=== PATIENT | male | born 1945 | race Caucasian/White ===

== ENCOUNTER 2019-11-15 05:44 | Emergency (ER) | payer MEDICARE, BC | END 2019-11-15 06:21 | LOC: ERS 05:44 | DX: Z04.3 Encounter for examination and observation following other accident (principal); F03.90 Unspecified dementia, unspecified severity, without behavioral disturbance, psychotic disturbance, mood disturbance, and anxiety; M19.90 Unspecified osteoarthritis, unspecified site; G40.909 Epilepsy, unspecified, not intractable, without status epilepticus; K21.9 Gastro-esophageal reflux disease without esophagitis; F41.9 Anxiety disorder, unspecified; Z79.899 Other long term (current) drug therapy; W18.30XA Fall on same level, unspecified, initial encounter | CPT/HCPCS: 99283 ==

== ENCOUNTER 2020-03-29 10:56 | Emergency (ER) | payer MEDICARE, BC ==
[2020-03-29 12:56] LABS: #Eosinphils 0.1 thou/uL (0.0-0.7); #Lymphocytes 0.9 thou/uL (1.20-3.40); #Monocytes 0.7 thou/uL (0.11-0.59); #Neutrophils 5.6 thou/uL (1.40-6.50); %Basophils 0.4 % (0.0-1.0); %Eosinophils 1.2 % (0.0-10.0); %Lymphocytes 12.8 % (21.0-51.0); %Monocytes 9.3 % (0.0-10.0); %Neutrophils 76.3 % (42.0-75.0); Hemoglobin 15.5 g/dL (14.0-18.0); Mean Corpuscular HGB CONC 32.9 g/dL (32.0-36.0); Mean Corpuscular Hemoglobin 32.6 pg (27.0-31.0); Mean Corpuscular Volume 99.1 fL (78.0-98.0); Mean Platelet Volume 9.2 fL (7.4-10.4); Platelet Count 109 thou/uL (130-400); RBC Distribution Width 11.9 % (11.5-14.5); Red Blood Cell (RBC) Count 4.75 mill/uL (4.70-6.10); White Blood Cell (WBC) Count 7.4 thou/uL (4.8-10.8)
[2020-03-29 13:16] LABS: Platelet Morphology Comment Appears Decreased; RBC Morphology Normal
[2020-03-29 13:25] LABS: ALT (SGPT) Less than 7 U/L (8-55); AST (SGOT) 15 U/L (5-34); Albumin 4.1 g/dL (3.4-4.8); Alkaline Phosphatase 54 U/L (40-110); Anion Gap 13 mmol/L (10-20); BUN (Urea Nitrogen) 15 mg/dL (8.4-25.7); Bilirubin, Total 0.7 mg/dL (0.2-1.2); Calc. Creatinine Clearance 0 mL/min (70-130); Calcium 8.9 mg/dL (7.8-10.44); Carbon Dioxide 26 mmol/L (23-31); Chloride 104 mmol/L (98-107); Estimated GFR-MDRD 67; Globulin 2.5 g/dL (2.4-3.5); Glucose 111 mg/dL (83-110); Potassium 4.1 mmol/L (3.5-5.1); Protein, Total 6.6 g/dL (5.8-8.1); Sodium 139 mmol/L (136-145)
[2020-03-29 14:35] LABS: Bilirubin Negative (Negative); Blood, Urine Negative (Negative); Glucose, Urine (Dipstick) Negative (Negative); Leukocyte Negative (Negative); Nitrite Negative (Negative); Protein, Urine (Dipstick) Negative (Neg-Trace); Urobilinogen 0.2 mg/dL (Less than 2)
[2020-03-29 14:37] LABS: Clarity Clear (Clear)
--- NOTE | 2020-03-29 15:40 | RAD ---
PORTABLE CHEST ONE VIEW: 03/29/20 at 11:48 a.m. HISTORY: Syncope. FINDINGS: The heart size is normal. No focal areas of consolidation, pneumothoraces, or pleural effusions are s een. There is evidence of old granulomatous disease. IMPRESSION: No acute process. POS: MAYA
== END 2020-03-29 16:09 | disposition home or self-care (01) ==
LOC: ERS 10:56
DX: R41.82 Altered mental status, unspecified (principal); F03.90 Unspecified dementia, unspecified severity, without behavioral disturbance, psychotic disturbance, mood disturbance, and anxiety; G40.909 Epilepsy, unspecified, not intractable, without status epilepticus; F41.9 Anxiety disorder, unspecified; M19.90 Unspecified osteoarthritis, unspecified site; Z79.899 Other long term (current) drug therapy
CPT/HCPCS: 36415; 51701; 71045; 80053; 80177; 81003; 84484; 85025; 93005

== ENCOUNTER 2020-04-14 12:43 | Inpatient (IN) | payer MEDICARE, BC, OTHER ==
[2020-04-14] MEDS ORDERED: Vancomycin 1 GM/200 ML BAG ONE (13:04)
[2020-04-14] MEDS ORDERED: Cefepime 2 GM VIAL ONE (13:09)
[2020-04-14] MEDS ORDERED: Iopamidol-370 76% 500 ML 1 ML ONE (13:09)
[2020-04-14 13:20] LABS: #Basophils 0.1 thou/uL (0.0-0.2); #Lymphocytes 0.2 thou/uL (1.20-3.40); #Monocytes 0.4 thou/uL (0.11-0.59); #Neutrophils 6.6 thou/uL (1.40-6.50); %Basophils 0.8 % (0.0-1.0); %Eosinophils 0.6 % (0.0-10.0); %Lymphocytes 3.2 % (21.0-51.0); %Monocytes 5.6 % (0.0-10.0); %Neutrophils 89.7 % (42.0-75.0); Mean Corpuscular HGB CONC 32.9 g/dL (32.0-36.0); Mean Corpuscular Hemoglobin 32.8 pg (27.0-31.0); Mean Corpuscular Volume 99.6 fL (78.0-98.0); Mean Platelet Volume 8.5 fL (7.4-10.4); Platelet Count 105 thou/uL (130-400); RBC Distribution Width 11.9 % (11.5-14.5); Red Blood Cell (RBC) Count 3.98 mill/uL (4.70-6.10); White Blood Cell (WBC) Count 7.3 thou/uL (4.8-10.8)
[2020-04-14 13:41] LABS: ALT (SGPT) 26 U/L (8-55); AST (SGOT) 38 U/L (5-34); Albumin 3.2 g/dL (3.4-4.8); Alkaline Phosphatase 85 U/L (40-110); Anion Gap 17 mmol/L (10-20); BUN (Urea Nitrogen) 19 mg/dL (8.4-25.7); Bilirubin, Total 1.7 mg/dL (0.2-1.2); CK (CPK) 510 U/L (30-200); Calc. Creatinine Clearance 0 mL/min (70-130); Calcium 7.9 mg/dL (7.8-10.44); Carbon Dioxide 24 mmol/L (23-31); Chloride 102 mmol/L (98-107); Estimated GFR-MDRD 68; Globulin 2.2 g/dL (2.4-3.5); Glucose 146 mg/dL (83-110); Lipase 36 U/L (8-78); Potassium 3.5 mmol/L (3.5-5.1); Protein, Total 5.4 g/dL (5.8-8.1); Sodium 139 mmol/L (136-145)
--- NOTE | 2020-04-14 13:56 | RAD ---
PORTABLE CHEST ONE VIEW: 04/14/20 at 1:05 p.m. HISTORY: Low oxygen saturation and fever. COMPARISON: Earlier exam of 12:46 a.m. from same date. FINDINGS/IMPRESSION: No significant interval changes are seen. POS: OFF
[2020-04-14] MEDS ORDERED: Azithromycin 500 MG VIAL ONE (15:04)
--- NOTE | 2020-04-14 16:26 | CT ---
CTA Angio Chest W WO Con 04/14/2020 1:49 PM Indication: Fever, shortness of breath, tachycardia and elevated d-dimer Technique: Multiple CTA images were obtained of the thorax with IV contrast. 3-D rendering: [place] nstructed images were created and reviewed. Comparison: Chest radiograph dated March 29, 2020 Findings: Pulmonary arteries: No central or segmental pulmonary embolus is evident. Heart and Aorta: There are coronary artery and thoracic aortic calcifications. There is mild cardiom egaly. Mediastinum:Normal appearing. No enlarged lymph nodes. Lungs:Airspace consolidation is present within the posterior lateral right lower lobe. There is subse gmental volume loss involving both lower lobes. Pleural space: Small bilateral pleural effusions. Upper Abdomen: There is a small hiatal hernia. There is a hypodense oval lesion involving the expect ed region of the superior pole left kidney that is incompletely characterized. This measures 4.6 cm and may reflect a prominent exophytic cyst. Osseous Structures: No acute osseous abnormality. Soft tissues:No abnormality. Other findings:None. Impression: 1. No central or segmental pulmonary embolus. 2. Right lower lobe pneumonia 3. Mild cardiomegaly and small bilateral pleural effusions suspicious for a component of mild CHF. R ecommend correlation with clinical examination. 4. Partially visualized hypodense lesion involving the region of the superior pole left kidney suspi cious for possible cyst. Follow-up renal ultrasound is recommended.
[2020-04-14 18:44] LABS: Bilirubin Negative (Negative); Blood, Urine Small (Negative); Glucose, Urine (Dipstick) Negative (Negative); Leukocyte Negative (Negative); Nitrite Negative (Negative); Protein, Urine (Dipstick) 30 mg/dL (Neg-Trace)
[2020-04-14 18:45] LABS: Clarity Hazy (Clear)
[2020-04-14 18:50] LABS: Other Microscopic Description Less than 2 mL rec'd
[2020-04-14 18:51] LABS: Bacteria/HPF None Seen HPF (None Seen); Squamous Epithelial None Seen HPF (0-3); WBC/HPF 0-3 HPF (0-3)
[2020-04-14] MEDS ORDERED: Calcium Carbonate 500 MG ChewTAB PO PRN (20:22)
[2020-04-14] MEDS ORDERED: Ondansetron PF 4 MG/2 ML Vial IVP PRN ×2 (20:22→20:29)
[2020-04-14] MEDS ORDERED: Bisacodyl 5 MG TAB PO PRN (20:22)
[2020-04-14] MEDS ORDERED: HYDROcodone/Acetaminophen 5/325 mg Tablet PO PRN (20:22)
[2020-04-14] MEDS ORDERED: diphenhydrAMINE 25 MG CAP PO PRN (20:24)
[2020-04-14] MEDS ORDERED: Docusate 100 MG CAP PO PRN (20:24)
[2020-04-14] MEDS ORDERED: Melatonin 3 MG TAB PO PRN (20:24)
[2020-04-14] MEDS ORDERED: Labetalol HCl 100 MG/20 ML VIAL SLOW IVP PRN (20:24)
[2020-04-14] MEDS ORDERED: Benzonatate 100 MG CAP PO PRN (20:24)
[2020-04-14] MEDS ORDERED: Ondansetron ODT 4 MG TAB SL PRN (20:29)
--- NOTE | 2020-04-14 20:38 | PDOC.HHP ---
Hospitalist HPI - History of Present Illness Fever, concern for COVID 19 History of Present Illness: 75-year-old gentleman with past medical history of Parkinson's disease, dementia , traumatic brain injury, seizure disorder, and osteoarthritis presents with fever and symptoms of Covid 19. Patient is nonverbal a baseline and has lived in nursing facility for the past four years. History is primarily obtained from the patient's and son in person. Patient has had worsening trouble breathing with shortness of breath and hypoxia at nursing facility, he was found have a temperature and was sent over to the emergency department for further evaluation. Upon arrival he had a temperature reportedly of 103.9, CT scan of the chest was performed for and elevated D dimer which was negative for pulmonary embolism however demonstrated a right lower lobe pneumonia. Patient's labs are suggestive of Covid 19, he has a normal white blood cell count, elevated D dimer, low platelets, and a mild increase in his liver function tests. I find the patient in the emergency department he is laying flat in bed in no apparent distress his eyes are open any tracks around the room. He opens his mouth and attempts to make a few words though they are incomprehensible. The patient was diagnosed with sepsis in the emergency department and recommended admission for further management. I had a long discussion with patients and son in the conference room in the emergency department, greater than one hour of [id number] time was spent with patient's family. The patient has lived for the fast past [facility] years in prison facility, this current nursing facility has an outbreak of Covid 19 with "18 out of 22 members who have tested positive" for the infection, per the patient's . The patient had a test on Thursday of last week with results coming back on Thursday being "negative". I discussed with them the possibility of false- negative testing and the limitations of the current Covid 19 test. I had discussed with them at length their goals of care and they state that he is a do not attempt resuscitation and do not intubate at baseline. They are not interested in aggressive measures, they specifically do not want to start antibiotics or other medications to treat COVID. They want only comfort care measures, they do not want anymore painful or uncomfortable testing including no more lab draws and they are interested in Palliative care/ hospice. I will consult the Palliative care team and see if we can help set up hospice prior to discharge. Hospitalist ROS - Review of Systems ROS unobtainable: due to mental status Hospitalist History - Past Medical History Source: patient, family, old records - Past Surgical History Past Surgical History: reports: Other (craniotomy) - Family History Family History: reports: hypertension - Social History Smoking Status: Never smoker Alcohol: reports: None Drugs: reports: none Living Situation: Prison Domestic Violence: Negative - Exam General Appearance: NAD Eye: PERRL, anicteric sclera ENT: normocephalic atraumatic, moist mucosa Neck: supple, symmetric, no lymphadenopathy Heart: no murmur, no gallops, no rubs, normal peripheral pulses Respiratory: CTAB, no wheezes, no rales, no ronchi, normal chest expansion Respiratory - other findings: Mild decrease in breath sounds right lower lung elizondo Gastrointestinal: soft, non-tender, no guarding, no rigidity Extremities: no edema Skin: no lesions, no rashes Neurological: cranial nerve grossly intact, no focal deficits ( pill rolling tremmor.) Neurological - other findings: Classic exam of Parkinsons. Cogwheel rigidity, masked faces, Musculoskeletal: generalized weakness Psychiatric: not oriented, flat affect Hospitalist Results - Labs Result Diagrams: 04/14/20 13:00 04/14/20 13:00 Lab results: WBC 7.3 thou/uL (4.8-10.8) 04/14/20 13:00 Hgb 13.0 g/dL (14.0-18.0) L 04/14/20 13:00 Hct 39.6 % (42.0-52.0) L 04/14/20 13:00 MCV 99.6 fL (78.0-98.0) H 04/14/20 13:00 Plt Count 105 thou/uL (130-400) L 04/14/20 13:00 Neutrophils % 89.7 % (42.0-75.0) H 04/14/20 13:00 Sodium 139 mmol/L (136-145) 04/14/20 13:00 Potassium 3.5 mmol/L (3.5-5.1) 04/14/20 13:00 Chloride 102 mmol/L (98-107) 04/14/20 13:00 Carbon Dioxide 24 mmol/L (23-31) 04/14/20 13:00 BUN 19 mg/dL (8.4-25.7) 04/14/20 13:00 Creatinine 1.06 mg/dL (0.7-1.3) 04/14/20 13:00 Glucose 146 mg/dL (83-110) H 04/14/20 13:00 Lactic Acid 1.0 mmol/L (0.5-2.2) 04/14/20 18:07 Calcium 7.9 mg/dL (7.8-10.44) 04/14/20 13:00 Total Bilirubin 1.7 mg/dL (0.2-1.2) H 04/14/20 13:00 AST 38 U/L (5-34) H 04/14/20 13:00 ALT 26 U/L (8-55) 04/14/20 13:00 Alkaline Phosphatase 85 U/L (40-110) 04/14/20 13:00 Creatine Kinase 510 U/L (30-200) H 04/14/20 13:00 Troponin I 0.012 ng/mL (< 0.028) 04/14/20 13:00 B-Natriuretic Peptide 33.5 pg/mL (0-100) 04/14/20 13:00 Serum Total Protein 5.4 g/dL (5.8-8.1) L 04/14/20 13:00 Albumin 3.2 g/dL (3.4-4.8) L 04/14/20 13:00 Lipase 36 U/L (8-78) 04/14/20 13:00 Urine Ketones Negative mg/dL (Negative) 04/14/20 18:00 Urine Blood Small (Negative) A 04/14/20 18:00 Urine Nitrite Negative (Negative) 04/14/20 18:00 Ur Leukocyte Esterase Negative (Negative) 04/14/20 18:00 Urine RBC 4-6 HPF (0-3) A 04/14/20 18:00 Urine WBC 0-3 HPF (0-3) 04/14/20 18:00 Ur Squamous Epith Cells None Seen HPF (0-3) 04/14/20 18:00 Urine Bacteria None Seen HPF (None Seen) 04/14/20 18:00 - Radiology Interpretation CT scan - chest Status: image reviewed by tn Hospitalist H&P A/P - Problem (1) COVID-19 Code(s): U07.1 - COVID-19 Status: Acute (2) Pneumonia due to COVID-19 virus Code(s): U07.1 - COVID-19; J12.89 - OTHER VIRAL PNEUMONIA Status: Acute (3) Shortness of breath Code(s): R06.02 - SHORTNESS OF BREATH Status: Acute (4) Fever Code(s): R50.9 - FEVER, UNSPECIFIED Status: Acute (5) Seizure Code(s): R56.9 - UNSPECIFIED CONVULSIONS Status: Acute (6) Parkinson disease Code(s): G20 - PARKINSON'S DISEASE Status: Acute (7) Traumatic brain injury Code(s): S06.9X9A - UNSP INTRACRANIAL INJURY W LOC OF UNSP DURATION, INIT Status: Acute (8) Thrombocytopenia Code(s): D69.6 - THROMBOCYTOPENIA, UNSPECIFIED Status: Acute (9) Lactic acid acidosis Code(s): E87.2 - ACIDOSIS Status: Acute (10) Elevated liver enzymes Code(s): R74.8 - ABNORMAL LEVELS OF OTHER SERUM ENZYMES Status: Acute - Plan Plan: Plan: Admit to medical unit Palliative care consultation, recommendations appreciated Goals of family is to have palliative care/hospice set up, at the [facility] where he is a chronic resident Family DO NOT want treatment of COVID19 and declined antibiotics or other such therapy Family DO want comfort care, pain control, cough aid, pain medications, anxiety medications as needed Patient is a DNAR prior to admission, we will honor patients and families wishes No further lab draws or invasive measure Conintue home: Sinemet, Keppra, Risperdal, Protonix Added PRN medications for pain, sleep, cough, anxiety, tylenol for fever Symptomatic care Greater than 85 minutes of care provided, with 60 minutes of face to face time spent with patient and family
[2020-04-14 20:39] VITALS: BMI 21.9
[2020-04-14] MEDS ORDERED: Morphine 2 MG/ML SYRINGE SLOW IVP PRN (20:54)
[2020-04-14] MEDS ORDERED: levETIRAcetam 500 MG TAB PO SCH (21:00)
[2020-04-14] MEDS: RisperDAL M-TAB 1 MG TAB SL SCH ×2 (22:49→23:24)
[2020-04-14] MEDS: Acetaminophen 650 MG Suppository PR PRN (23:24)
[2020-04-15] MEDS ORDERED: Vancomycin 1 GM in Premix Bag 1 BAG IVPB SCH (02:00)
[2020-04-15] MEDS: Acetaminophen 650 MG Suppository PR PRN (03:36)
[2020-04-15] MEDS ORDERED: Ketorolac Tromethamine 30 MG/ML VIAL IVP SCH (06:00)
[2020-04-15] MEDS: Carbidopa/Levodopa 25-100 mg Tablet PO SCH (09:08)
[2020-04-15] MEDS: RisperDAL M-TAB 1 MG TAB SL SCH ×3 (09:37→20:18)
[2020-04-15] MEDS ORDERED: Cefepime 2 GM in Sodium Chloride 0.9% 100 ML IVPB SCH (13:00)
--- NOTE | 2020-04-15 13:14 | PDOC.HOSPP ---
- Subjective Subjective: Seen and examined. Fever in the night up to 102.2, down trended with Tylenol this AM. Clinically seems more lethargic and worse. Very rigid and stiff muscles from Parkinson's disease. I called the patient's , Amalia at , time was given for questions, all answered in detail. I updated her to the critical nature of his condition including the fact that he now has bacteremia. She wishes to stay the course and is interested in hospice/ palliative care. She does not want the addition of antibiotics. She does not want the addition of more lab draws an invasive testing which would cause him discomfort. He is on airborne precautions with a high likelihood that he has Covid virus, in addition to right lower lobe pneumonia secondary to the Covid virus. Patient has developed bacteremia with two out of two blood cultures being positive for Streptococcus. Prognosis is poor, patients family understand this and wish to continue his DNR and DNI status. Greater than 20 minutes spent on the phone with patients . - Objective Vital Signs & Weight: Vital Signs (12 hours) Temp Pulse Resp BP BP Pulse Ox 04/15/20 12:00 98.8 F 65 18 90/63 96 04/15/20 08:00 97.5 F L 65 18 93/56 L 96 04/15/20 05:26 102.2 F H 04/15/20 03:48 101.8 F H 76 18 116/87 96 04/15/20 01:29 101 F H 64 20 93/88 96 Weight Weight 162 lb I&O: 04/14/20 04/15/20 04/16/20 06:59 06:59 06:59 Intake Total 360 Output Total 700 Balance -700 360 Result Diagrams: 04/14/20 13:00 04/14/20 13:00 Radiology Reviewed by me: Yes Hospitalist ROS - Review of Systems All other systems reviewed; all pertinent +/- noted in HPI/Subj - Medication Medications: Active Medications Generic Name Dose Route Start Last Admin Trade Name Freq PRN Reason Stop Dose Admin Acetaminophen 650 mg 04/14/20 21:04 04/15/20 03:36 Tylenol ND 650 mg Q4H PRN Administration Headache/Fever/Mild Pain (1-3) Carbidopa/Levodopa 2 tab 04/15/20 09:00 04/15/20 09:08 Sinemet 25-100 PO 2 tab QAM SANTIAGO Administration Levetiracetam 500 mg/ Device 100 mls @ 200 mls/hr 04/15/20 09:00 04/15/20 09: 09 IVPB 100 mls BID SANTIAGO Administration Pantoprazole Sodium 40 mg 04/15/20 09:00 04/15/20 09:09 Protonix PO 40 mg DAILY SANTIAGO Administration Risperidone 0.5 mg 04/14/20 21:00 04/15/20 09:37 Risperdal M-Tab SL 0.5 mg TID SANTIAGO Administration Sodium Chloride 10 ml 04/14/20 21:00 04/15/20 09:09 Flush - Normal Saline IVF 10 ml Q12HR SANTIAGO Administration - Exam General Appearance: ill appearing Eye: PERRL ENT: normocephalic atraumatic, moist mucosa Neck: supple, symmetric, no lymphadenopathy Heart: no murmur, no gallops, no rubs Respiratory: no rales, no ronchi, normal chest expansion, wheezes (few faint right lower quadrant) Gastrointestinal: soft, non-tender, no guarding, no rigidity Extremities: no edema Skin: no lesions, no rashes Neurological: cranial nerve grossly intact, no focal deficits Neurological - other findings: severe rigidity from parkinsons, masked faces, tremor of hand Musculoskeletal: generalized weakness Psychiatric: not oriented, flat affect Hosp A/P (1) COVID-19 Code(s): U07.1 - COVID-19 Status: Acute (2) Pneumonia due to COVID-19 virus Code(s): U07.1 - COVID-19; J12.89 - OTHER VIRAL PNEUMONIA Status: Acute (3) Shortness of breath Code(s): R06.02 - SHORTNESS OF BREATH Status: Acute (4) Fever Code(s): R50.9 - FEVER, UNSPECIFIED Status: Acute (5) Seizure Code(s): R56.9 - UNSPECIFIED CONVULSIONS Status: Acute (6) Parkinson disease Code(s): G20 - PARKINSON'S DISEASE Status: Acute (7) Traumatic brain injury Code(s): S06.9X9A - UNSP INTRACRANIAL INJURY W LOC OF UNSP DURATION, INIT Status: Acute (8) Thrombocytopenia Code(s): D69.6 - THROMBOCYTOPENIA, UNSPECIFIED Status: Acute (9) Lactic acid acidosis Code(s): E87.2 - ACIDOSIS Status: Acute (10) Elevated liver enzymes Code(s): R74.8 - ABNORMAL LEVELS OF OTHER SERUM ENZYMES Status: Acute - Plan Plan: medical unit palliative care consultation, recommendations appreciated I have briefly discussed the case with Shani Pinto, who will see the patient tomorrow and help coordinate care goals of family is to have palliative care/hospice set up at the [facility] where he is a chronic resident family DO NOT want treatment for Covid 19 and decline antibiotics or other such medications family DO want comfort care, pain control, cough aid, pain medications, and anxiety medications if needed patient is a do not attempt resuscitation and do not intubate prior to admission , we will honor patient's and family's wishes no further lab draws or invasive measures will continue a regular diet, pleasure feeding patient has concerns for aspiration prior to admission though want to continue to feed him, understanding that aspiration can happen continue home medications: Sinemet, Keppra, Risperdal, protonic's added PRN medications for pain, sleep, cough, Tylenol for fever symptomatic care Bacteremia seen, again offered antibiotics though patients family declined. His overall quality of life is poor and they are not interested in aggressive life sustaining measures. Disposition. Family understand terminal condition without treatment, interested in hospice care only. Greater than 20 minutes spent on the phone with patient's Amalia, coordinated care with palliative care nurse practitioner, discussed with nurse who is caring for the patient today. Total time caring for patient greater than 45 minutes.
[2020-04-15] MEDS: Acetaminophen 325 MG TAB PO PRN (15:24)
[2020-04-15 17:18] LABS: SARS-CoV-2 MS2 Positive; SARS-CoV-2 N Gene Negative; SARS-CoV-2 S Gene Negative; SARS-CoV-2 orf1ab Negative
[2020-04-16] MEDS: RisperDAL M-TAB 1 MG TAB SL SCH ×3 (09:37→21:25)
[2020-04-16] MEDS: Carbidopa/Levodopa 25-100 mg Tablet PO SCH (09:38)
[2020-04-16] MEDS ORDERED: Iopamidol-370 76% 500 ML 1 ML ONE (09:54)
[2020-04-16] MEDS ORDERED: Vancomycin 1 GM in Premix Bag 1 BAG IVPB SCH (11:00)
--- NOTE | 2020-04-16 14:07 | PDOC.HOSPP ---
- Subjective Encounter Date: 04/16/20 Encounter Time: 10:15 Subjective: is calm, in no distress eyes are closed - Objective Vital Signs & Weight: Vital Signs (12 hours) Temp Pulse Resp BP Pulse Ox 04/16/20 12:00 98.4 F 75 20 107/64 95 04/16/20 08:00 99.2 F 70 22 H 109/70 94 L 04/16/20 04:22 95 04/16/20 03:46 99.2 F 75 20 117/68 95 Weight Weight 162 lb I&O: 04/15/20 04/16/20 04/17/20 06:59 06:59 06:59 Intake Total 1060 Output Total 700 675 Balance -700 385 Result Diagrams: 04/14/20 13:00 04/14/20 13:00 Hospitalist ROS - Medication Medications: Active Medications Generic Name Dose Route Start Last Admin Trade Name Freq PRN Reason Stop Dose Admin Acetaminophen 650 mg 04/14/20 20:22 04/15/20 15:24 Tylenol PO 650 mg Q4H PRN Administration Headache/Fever/Mild Pain (1-3) Acetaminophen 650 mg 04/14/20 21:04 04/15/20 03:36 Tylenol NM 650 mg Q4H PRN Administration Headache/Fever/Mild Pain (1-3) Carbidopa/Levodopa 2 tab 04/15/20 09:00 04/16/20 09:38 Sinemet 25-100 PO 2 tab QAM SANTIAGO Administration Levetiracetam 500 mg/ Device 100 mls @ 200 mls/hr 04/15/20 09:00 04/16/20 09: 37 IVPB 100 mls BID SANTIAGO Administration Vancomycin HCl 1 gm/ Device 200 mls @ 200 mls/hr 04/16/20 11:00 04/16/20 11: 35 IVPB 200 mls 1100,2300 SANTIAGO Administration Pantoprazole Sodium 40 mg 04/15/20 09:00 04/16/20 09:39 Protonix PO 40 mg DAILY SANTIAGO Administration Risperidone 0.5 mg 04/14/20 21:00 04/16/20 09:37 Risperdal M-Tab SL 0.5 mg TID SANTIAGO Administration Sodium Chloride 10 ml 04/14/20 21:00 04/16/20 09:39 Flush - Normal Saline IVF 10 ml Q12HR SANTIAGO Administration - Exam Eye: anicteric sclera ENT: no oropharyngeal lesions, dry oral mucosa Neck: supple, no JVD Heart: RRR, no murmur Respiratory: no wheezes, no rales Gastrointestinal: soft, non-tender, non-distended, normal bowel sounds Extremities: no cyanosis, no edema Neurological: cranial nerve grossly intact, no focal deficits Hosp A/P (1) Sepsis Code(s): A41.9 - SEPSIS, UNSPECIFIED ORGANISM Status: Acute Qualifiers: Sepsis type: Streptococcus, other Sepsis acute organ dysfunction status: with acute organ dysfunction Severe sepsis acute organ dysfunction type: encephalopathy Severe sepsis shock status: without septic shock Qualified Code(s): A40.8 - Other streptococcal sepsis; R65.20 - Severe sepsis without septic shock; G93.41 - Metabolic encephalopathy (2) Streptococcal bacteremia Code(s): R78.81 - BACTEREMIA; B95.5 - UNSP STREPTOCOCCUS THE CAUSE OF DISEASES CLASSD [id number] Status: Acute (3) COVID-19 Code(s): U07.1 - COVID-19 Status: Suspected (4) Parkinson disease Code(s): G20 - PARKINSON'S DISEASE Status: Chronic (5) Seizure Code(s): R56.9 - UNSPECIFIED CONVULSIONS Status: Chronic (6) Traumatic brain injury Code(s): S06.9X9A - UNSP INTRACRANIAL INJURY W LOC OF UNSP DURATION, INIT Status: Chronic Qualifiers: Encounter type: sequela - Plan he has had 2 covid tests done at his snf ([facility]) and one here on 04/14/2020 all of which are -ve strep anginosus bacteremia, echo is ordered, is on vanc, ID consultation, has pcn allergy continue droplet precautions until cleared by d/w and children over phone continue current meds as above mobilize with RW as tolerated encourage po intake
[2020-04-16] MEDS ORDERED: cefTRIAXone\\ROCEPHIN 2 GM in Sodium Chloride 0.9% 100 ML IVPB SCH (18:00)
[2020-04-17] MEDS: Acetaminophen 325 MG TAB PO PRN (00:21)
--- NOTE | 2020-04-17 01:07 | CON ---
DATE OF CONSULTATION: 04/16/2020 REASON FOR CONSULTATION: Bacteremia. HISTORY OF PRESENT ILLNESS: A 75-year-old with history of dementia, Parkinson disease who is a resident at [place] at [facility]. The patient developed fever and hypoxemia and because of the outbreak in that location, there was a concern with COVID pneumonia. He had been tested two days before and was told to be negative. He was stated the second time negative. He has a do not resuscitate status. He was brought to the hospital and they were getting ready for hospice admission, but then his blood cultures turn positive. He has been started on antimicrobials. Currently, Mr. Go is awake. He does not seem to be in distress, but he is completely unable to provide any meaningful information. He will establish eye contact briefly, but does not follow commands. Does not reply to questions. Pretty much stays within himself, absorbed in his own thoughts or delusional thinking process. According to the nurse, there has been no diarrhea. No seizure activity. PAST MEDICAL HISTORY: Parkinson disease, dementia, osteoarthritis, epilepsy, dysphagia, GERD. PAST SURGICAL HISTORY: Some neurosurgical procedure in the past, not clear which. Hemorrhoids surgery. SOCIAL HISTORY: Never smoker. Lives in a senior living. ALLERGIES: PENICILLIN. MEDICATIONS: 1. Carbidopa levodopa. 2. Pantoprazole. 3. Risperdal. 4. Keppra. 5. Meloxicam. Here, he is receivin. [place]. 2. DuoNeb. 3. Tessalon. 4. Dulcolax. 5. Sinemet. 6. Benadryl. 7. Normodyne. 8. Vancomycin. PHYSICAL EXAMINATION: VITAL SIGNS: T-max was 102 when he came in, now he is defervesced. BP 113/56, pulse 70, respirations 16 to 20, O2 saturation 95. SKIN: No areas of skin breakdown. The patient is voiding with an indwelling Kramer catheter. He has peripheral IV access. No lymphadenopathy. HEENT: Ocular movements are conjugate. Oral cavity is still with quite a few teeth in place. Somewhat dry oral cavity. LUNGS: With diminished breath sounds on the right base. A few crackles there. HEART: S1-S2 regular rate. ABDOMEN: Moderately distended. A little bit of guarding in various parts of the abdomen when palpated, particularly the left lower quadrant. No ascites. No bladder distention. No genital abnormality except for indwelling Kramer catheter. No joint inflammatory activity. No edema. He has diffuse stiffness. He does not interact with the examiner in the meaningful fashion. Plantar responses are downgoing. LABORATORY DATA: WBC count 7.3, hemoglobin 13, platelets 105,000, 89% neutrophils. Sodium 139, creatinine 1.06, bilirubin 1.7, AST 38, ALT 26, alkaline phosphatase 85. CK 510, albumin 3.2. Urinalysis, 0 to 3 wbc's. COVID was negative in this hospital. Microbiology with Streptococcus anginosus identified in 2 sets of blood cultures. IMAGING STUDIES: There is a CT chest angiogram and this showed no pulmonary embolism. There is airspace consolidation present in the posterior lateral right lower lobe. There is a cyst in the kidney. No comment is made of the liver parenchyma. I reviewed the images and there is one area, which might suggest a cystic lesion in the liver parenchyma. ASSESSMENT: 1. Parkinson disease, dementia, quite advanced features with inability to provide any subjective information. 2. Fever with Streptococcus anginosus bacteremia. DISCUSSION: Although patient originates from the institution where there has been an outbreak of COVID, he has had three negative COVID tests and he has a reason for his decompensation, which is the Streptococcus anginosus bacteremia. Strep anginosus can be associated with suppurative foci in the abdominal area pneumonia as well as endocarditis, so would recommend an echocardiogram and dedicated pelvis CT with oral and IV contrast to identify the origin of this bacteremia and then define the treatment course. For the time being, we will switch him back to beta- lactam with Rocephin, discontinue current vancomycin and it will be important to define the origin of this bacteremia to allow us to establish the duration of therapy for this gentleman. In terms of his COVID diagnosis, I think although he comes from that unit, it is probably unlikely that he has COVID and probably more likely that he has this other diagnosis, which appears to be the culprit here. Job ID: [id number] [facility]
--- NOTE | 2020-04-17 07:24 | CT ---
CT ABDOMEN AND PELVIS WITH CONTRAST: Date: 04/16/2020 HISTORY: Bacteremia, pain. COMPARISON: None. FINDINGS: Small right pleural effusion. Mild bibasilar atelectasis. There appears to be rupture of the gallbladder fundus within the hepatic parenchyma. Abnormal enhance ment of the gallbladder mucosa. There is cholelithiasis. Multiloculated collection within hepatic seg ment V and . There is cholelithiasis within the cystic duct. Mild hyperenhancement of the right-chantal ed biliary tree, likely sequelae of cholangitis. There are punctate stones in the right inferior renal collecting system. Indwelling Kramer catheter. M ild fullness of the right renal pelvis and proximal right ureter. Multiple left-sided parapelvic cyst s. Mild presacral edema. Mild third spacing of fluid. Small volume free fluid in the pelvis. There are some reactive changes of the second and third portions of the duodenum. No retroperitoneal or periaortic adenopathy. IMPRESSION: 1. Findings of intrahepatic rupture of the gallbladder with intraparenchymal hepatic segment V and V I abscesses. Surgical consultation is advised. 2. Cholangitis, predominantly of the right-sided intrahepatic biliary system. 3. Nonobstructed punctate small right renal calculus. 4. Mild hyperenhancement of the right renal pelvis and proximal ureter with low grade dilatation may reflect a recently passed stone. 5. Multiple parapelvic cysts left renal collecting system. 6. Cyst superior pole of left kidney has enhancing internal septations which are thin, measuring les s than 2.0 mm. At a minimum, a follow-up renal protocol CT in 3-6 months recommended. 7. Mild third spacing of fluid and small volume free fluid within the pelvis. POS: HOME
[2020-04-17] MEDS: Carbidopa/Levodopa 25-100 mg Tablet PO SCH ×2 (08:16→08:41)
[2020-04-17] MEDS: RisperDAL M-TAB 1 MG TAB SL SCH ×2 (08:17→08:41)
[2020-04-17 08:42] VITALS: TEMP 97.3
--- NOTE | 2020-04-17 10:21 | CON ---
DATE OF CONSULTATION: 04/17/2020 REQUESTING PHYSICIAN: Bharat Valle MD HISTORY OF PRESENT ILLNESS: This is a 75-year-old man, a resident of an extended care facility. The patient is poorly functional at baseline and aphasic over the last 4 years. The patient was admitted on 04/14/2020 with worsening dyspnea, associated with fever. Here, COVID-19 has been excluded. Additional septic workup included blood cultures, which were positive 2/[address] St[address] Subsequent [address] scan of the abdomen and pelvis obtained yesterday was remarkable for gangrenous gallbladder, which may have ruptured into the liver, causing a liver abscess. According to the patient's nurse, the patient apparently is declining in status. Additional history is obtained from chart review and from speaking with the patient's family. PAST MEDICAL HISTORY: Significant for: 1. Parkinson disease. 2. Traumatic brain injury. 3. Senile dementia of Alzheimer's type. 4. Epileptic seizure disorder. 5. Degenerative arthritic disease and overall debility. PAST SURGICAL HISTORY: Pertinent for craniectomy in the distant past. FAMILY HISTORY: Noncontributory for this patient's age. SOCIAL HISTORY: The patient is a resident of an extended care facility. He has no cigarette smoking, ethanol, or illicit drug abuse history. CURRENT MEDICATIONS: Include vancomycin and ceftriaxone intravenously. Additionally, the patient is on: 1. Protonix 40 mg p.o. daily. 2. Risperdal 0.5 mg sublingual t.i.d. 3. Morphine sulfate p.r.n. pain. 4. Keppra 500 mg IV b.i.d. 5. Carbidopa/levodopa two tablets p.o. q.a.m. 6. Tylenol p.r.n. fever. ALLERGIES: TO PENICILLIN. REVIEW OF SYSTEMS: Could not be obtained due to this patient's current mental status. PHYSICAL EXAMINATION: GENERAL: This reveals a 75-year-old man who otherwise appears in no acute distress. VITAL SIGNS: Current vital signs include blood pressure 111/60, pulse 59, respiratory rate is 18, temperature 97.3 degrees Fahrenheit, maximum temperature in last 24 hours is 102.3 degrees Fahrenheit, and oxygen saturation is 98% on room air. HEART: Reveals regular rate with mild sinus bradycardia. No murmurs or gallops auscultated. LUNGS: Clear to auscultation bilaterally. Breathing, regular and nonlabored. ABDOMEN: Soft with minimum tenderness in the right upper quadrant with no rebound tenderness present. DIAGNOSTIC STUDIES: I have personally reviewed the CT scan of the abdomen and pelvis obtained on 04/16/2020 and this reveals cholelithiasis with dilated gallbladder, gallbladder wall thickening, as well as an apparent intrahepatic rupture of the gallbladder itself with possible abscess. IMPRESSIONS: 1. Acute gangrenous cholecystitis/ Cholelithiasis 2. Streptococcus anginosus bacteremia RECOMMENDATIONS: 1. Under normal circumstances, this findings warrant surgical intervention to include cholecystectomy and drainage of hepatic abscess in addition to the already prescribed broad-spectrum antibiotic therapy. 2. I have discussed the above findings and recommendations with the patient's family by telephone conversation. 3. I did inform them that if the surgical intervention is undertaken, this is with potential risks for bleeding, infection, injury to bile duct or surrounding structures. 4. Additionally, due to this patient's significant comorbidities, this patient may or may not be able to return to his already poorly functional baseline status. 5. The patient's family have declined any surgical intervention at this time and instead have elected comfort care measures. They do so with full knowledge that this may certainly lead to this patient's demise. 6. The patient's family were thankful for the information provided and I have also agreed with the decision to pursue hospice care at this time. Thank you again, Dr. Valle, for allowing me the opportunity to participate in the care of this patient. Job ID: [id number] [facility]
[2020-04-17 11:14] LABS: SARS-CoV-2 MS2 Positive; SARS-CoV-2 N Gene Negative; SARS-CoV-2 S Gene Negative; SARS-CoV-2 orf1ab Negative
--- NOTE | 2020-04-17 11:53 | PDOC.PALCO ---
Palliative Care Consult - Consult Details Requesting Physician: Dr Mustafa Reason for Consult: goals of care, family support, complex decision-making Family Members Present: Family via phone - Pertinent HPI 75 year old male who resides at a detention facility. Known decline over the past 4 years requires assistance with ADL's and has been aphasic over the past 4 years. Onset of shortness of breath and difficulity breathing, no mitigating factors and after onset of fever presented to the emergency room for further evaluation. Secondary to Covid breakout at [facility] patient was tested for Covid 19 and admitted, placed on precautions. Family has communicated to Dr Mustafa and Palliative Care they are not interested in aggressive measures, but desire for Mr Go to be comfortable. - Pertinent PMH Parkinsons disease, dementia, TBI, Seizure disorder, - Social History Smoking Status: Never smoker Smoking: no tobacco exposure Alcohol Use: none Drug Use History: none Living Situation: , detention resident - Medications MAR Reviewed: Yes - Allergies Allergies/Adverse Reactions: Allergies Allergy/AdvReac Type Severity Reaction Status Date / Time Penicillins Allergy Verified 04/14/20 21:05 - Subjective Eyes remain closed, garbled speech with repetitive pattern. Not a reliable source for ROS - ROS Non Response: due to mental status - Objective Vital Signs: Vital Signs - Most Recent Temp Pulse Resp BP Pulse Ox 97.3 F L 59 L 18 111/60 98 04/17/20 08:00 04/17/20 08:00 04/17/20 08:00 04/17/20 08:00 04/17/20 08:00 Palliative Performance Scale: 20 - Physical Exam Constitutional: cachectic, confusion, encephalitic, ill appearing HEENT: moist MMs, sclera anicteric Respiratory: no wheezing, diminished lung sound Cardiovascular: RRR, diminished peripheral pulses Gastrointestinal: soft, non-tender, incontinent Genitourinary: ballesteros catheter Musculoskeletal: pulses present, diffuse muscle atrophy Lymphatic: no nodes Skin: no lesions, no rash Deviation from normal: Pallor, delayed cap refill to lower ext Deviation from normal: Unable to determine orientation - Problem List (1) Declining functional status Code(s): R53.81 - OTHER MALAISE Current Visit: Yes Status: Acute (2) Palliative care encounter Code(s): Z51.5 - ENCOUNTER FOR PALLIATIVE CARE Current Visit: Yes Status: Acute (3) Sepsis Code(s): A41.9 - SEPSIS, UNSPECIFIED ORGANISM Current Visit: Yes Status: Acute Qualifiers: Sepsis acute organ dysfunction status: with acute organ dysfunction Severe sepsis acute organ dysfunction type: encephalopathy Severe sepsis shock status : without septic shock (4) Shortness of breath Code(s): R06.02 - SHORTNESS OF BREATH Current Visit: Yes Status: Acute (5) Parkinson disease Code(s): G20 - PARKINSON'S DISEASE Current Visit: Yes Status: Chronic (6) Traumatic brain injury Code(s): S06.9X9A - UNSP INTRACRANIAL INJURY W LOC OF UNSP DURATION, INIT Current Visit: Yes Status: Chronic Qualifiers: Encounter type: sequela - Plan/Recommendations Plan: Family hopeful to transition to [facility]. CM has communicated with both the [facility] and [facility]. reports [facility] already in place, Pedro Paniagua RN [facility] has communicated in relation to this. Dr Humphreys has seen Mr Go secondary to consideration for surgical intervention of cholecystectomy and drainage of identified abscess, for which he is currently on abx. Family has elected palliation for this and no surgical intervention. Primary goal of family is discharge with Hospice to the [place]. Family hopeful for transition so that they can be with Mr Go. Please also refer to Pedro Paniagua RN notes Palliative Care [60] minutes spent on this encounter with >50% of the time in counseling and coordination of care. Thank you for this very appropriate consult.
[2020-04-17 12:02] VITALS: BP 109/65
--- NOTE | 2020-04-17 18:34 | DIS ---
DATE OF ADMISSION: 04/14/2020 DATE OF DISCHARGE: 04/17/2020 DISCHARGE DISPOSITION: To [place] at [facility] with [facility]. PRIMARY DISCHARGE DIAGNOSES: Gallbladder rupture with intrahepatic abscess, sepsis, Streptococcus anginosus bacteremia, history of traumatic brain injury, history of seizure disorder secondary to above, and Parkinson's disease. PROCEDURES DONE DURING HOSPITALIZATION: The patient has had COVID-19 PCR done on 04/14/2020, which was negative, prior to which he has had 2 prior COVID test done at the [facility] where he was at x2, which was negative. CT angio chest done on the day of admission showed no evidence of PE. There is suspicion of right lower lobe pneumonia. CT of the abdomen and pelvis with contrast showed findings of intrahepatic rupture of gallbladder with intraparenchymal hepatic segment 5 and 6 abscess, cholangitis predominantly of the right-sided intrahepatic biliary system. Blood cultures x2 grew Streptococcus anginosus, sensitive to all antibiotics. COVID-19 PCR on the was negative. He has had a repeat COVID- 19 PCR on 04/16/2020, which was negative. BUN 19, creatinine 1.0, total bilirubin 1.7, AST 38, ALT 26, alkaline phosphatase 85, and albumin 3.2. BNP 33. Troponin x1 negative. Lactic acid 3.7. D-dimer 5.53. H and H 13 and 39, platelet count 105, white count of 7.3, and MCV 99 with 89% neutrophils. INPATIENT CONSULT: Dr. Tinsley for Infectious Disease and Dr. Humphreys for General Surgery. DISCHARGE MEDICATIONS: 1. Xanax 0.25 mg p.o. daily p.r.n. 2. Carbidopa/levodopa extended release, the dosage as before. 3. Keppra 500 mg twice daily. 4. Protonix 40 mg daily. 5. Risperdal 0.5 mg p.o. 3 times daily. 6. Senokot one tablet twice daily. 7. Levaquin 500 mg p.o. daily for 2 weeks. 8. Flagyl 500 mg p.o. 3 times daily for 2 weeks. ALLERGIES: ALLERGIC TO PENICILLIN. BRIEF COURSE DURING HOSPITALIZATION: The patient initially got admitted on the after he was sent over from [facility] for fever. There is also concern for COVID-19 as other residents at the facility had the same. He was admitted to the telemetry. He has had COVID-19 PCR x2 done here, which were negative. The patient's blood cultures 2/[address] Initial [address] angio of the chest done on admission showed findings suspicious for possible right lower lobe infiltrate. A CT of the abdomen and pelvis with contrast done showed a ruptured gallbladder with intrahepatic abscess. The patient's family including and 2 children did not want to pursue any aggressive measures including intervention radiology procedures due to his underlying medical issues , especially with traumatic brain injury and other comorbid issues. In view of this, family was offered Hospice Services and they want to go with [facility]. This has been arranged at his [facility]. He will be shortly discharged once arrangements are made. A total of 35 minutes was spent on discharge plan. Please note, I have seen and examined the patient on the day of discharge. Job ID: [id number] [facility]
[2020-04-17 22:09] LABS: SARS-CoV-2 IgG Ab Non-Reactive (NonReactive); SARS-CoV-2 IgG Index 0.01 S/CO (< 1.40)
--- NOTE | 2020-04-21 12:23 | EKG ---
Test Reason : Blood Pressure : / mmHG Vent. Rate : 101 BPM Atrial Rate : 101 BPM P-R Int : 134 ms QRS Dur : 092 ms QT Int : 322 ms P-R-T Axes : 063 -58 060 degrees QTc Int : 417 ms Sinus tachycardia Left axis deviation Abnormal ECG Confirmed by PAWEL RODAS, JERRY ([id number]), editor news SIENA OKEEFE ([id number]) on 04/21/2020 12:23:09 PM Referred By: Confirmed By:JERRY ARMAS MD
== END 2020-04-17 15:50 | disposition hospice, inpatient (51) | DRG 871 ==
LOC: ERS 12:43 → 2SW 15:22
PROVIDERS: ADMIT Internal Medicine; ATTEND Internal Medicine
PROC: 8E0ZXY6 Isolation (ICD-10-PCS; principal; 2020-04-14)
DX: A40.8 Other streptococcal sepsis (principal); J18.9 Pneumonia, unspecified organism; G93.41 Metabolic encephalopathy; K75.0 Abscess of liver; E87.2 Acidosis; K80.00 Calculus of gallbladder with acute cholecystitis without obstruction; R47.01 Aphasia; Z66 Do not resuscitate; Z20.828 Contact with and (suspected) exposure to other viral communicable diseases; Z51.5 Encounter for palliative care; R65.20 Severe sepsis without septic shock; G20 Parkinson's disease; F02.80 Dementia in other diseases classified elsewhere, unspecified severity, without behavioral disturbance, psychotic disturbance, mood disturbance, and anxiety; M19.90 Unspecified osteoarthritis, unspecified site; G40.909 Epilepsy, unspecified, not intractable, without status epilepticus; K21.9 Gastro-esophageal reflux disease without esophagitis; F41.9 Anxiety disorder, unspecified; D69.6 Thrombocytopenia, unspecified; K82.A1 Gangrene of gallbladder in cholecystitis; Z88.0 Allergy status to penicillin; Z79.1 Long term (current) use of non-steroidal anti-inflammatories (NSAID); Z79.899 Other long term (current) drug therapy
CPT/HCPCS: 36415; 51701; 51703; 71045; 71275; 74177; 80053; 81003; 81015; 82550; 83605; 83690; 83880; 84484; 85025; 85379; 86769; 87040; 87077; 87149; 87186; 87635; 93005; 96361; 96365; 96367; J0456; J0692; J0694; J0696; J1885; J1953; J3370; J3490; Q9967; U0003